=== PATIENT | female | born 1965 | race Caucasian/White ===

== ENCOUNTER → 2025-07-10 | Outpatient (CLI) | payer OTHER, SELFPAY ==
[2025-07-10 19:35] LABS: Hematocrit 39.2 % (37-47); Hemoglobin 13.0 g/dL (12.0-15.0); Immature Granulocytes Count 0.010 X10^3/uL (0.0-0.0); Mean Corp Hgb Conc 33.2 g/dL (32-36); Mean Corpuscular Volume 86.2 fL (81-99); Mean Platelet Vol. 11.2 fl (6.2-12.0); NRBC Flagged by Analyzer 0 % (0-5); Platelet Count 272 K/mm3 (150-450); RBC Distribution Width CV 12.9 % (11.6-14.6); RBC Distribution Width SD 39.8 fl (35.1-43.9); Red Blood Count 4.55 M/mm3 (4.2-5.4); White Blood Count 8.0 K/mm3 (4.4-11.0)
[2025-07-10 20:14] LABS: AST(SGOT) 20 U/L (<=31); Alanine Aminotransfer ALT/SGPT 20 U/L (<=34); Albumin, Serum 4.6 g/dL (3.5-5.0); Alkaline Phosphatase 61 U/L (35-104); Anion Gap 10 (5-15); BUN 21 mg/dL (4-19); BUN/Creat Ratio 29.9 RATIO (10-20); Calcium,Total 10.3 mg/dL (7.6-11.0); Carbon Dioxide 25.0 mmol/L (21.0-32.0); Chloride 104 mmol/L (98-108); Ferritin 103 ng/mL (22-378); Globulin 3.0 g/dL (2.2-4.2); Glucose 93 mg/dL (70-99); Iron 75 ug/dL (50-170); Potassium 4.3 mmol/L (3.3-5.1); Vitamin D,25 Hydroxy 46.3 ng/mL (30-100)
--- OUTSIDE RECORDS SUMMARY | 2025-07-12 20:55 | XMS RPT_ITS | CCD ---
Author Organization [facility] Care Team Providers Care Field Placement Director Name Role Phone Anh Rudd NP Attending Unavailabl e ANH RUDD CNP Attending Unavailable MICHENERSILVERIOANH SIDE GUIDER Admitting Unavailable MICHENERANH SIDE GUIDER Primary Care Unavailable FATEMEH LANE MD Admitting Unavailable FATEMEH LANE MD Primary Care Unavailable FATEMEH LANE MD Attending Unavailable MICHENER, ANH SIDE GUIDER Attending Unavailable MICHENER, ANH SIDE GUIDER Admitting Unavailable MICHENER, ANH SIDE GUIDER Primary Care Unavailable CSERNYIK, ELADIA DO Admitting Unavailable CSERNYIK, ELADIA DO Primary Care Unavailable CSERNYIK, ELADIA DO Attending Unavailable Allergies Allergy Classification Reported Allergen(s) Allergy Type Date of Onset Reaction(s) Facility (1 source) predniSONE Drug Allergy [facility] Repository Problems Active Problems Problem Classification Problem Date Documented Da te Episodic/Chronic Other liver diseases (1 source) Hepatomegaly, not elsewhere classified; Translations: [Hepatomegaly, not elsewhere classified] Onset: 07-04-2024 Episodic Other lower respiratory disease (3 sources) Dyspnea, unspecified; Translations: [Dyspnea, unspecified] Onset: 07-04-2024 Episodic Other upper respiratory disease (1 source) Stridor; Translations: [Stridor] Onset: 07-04-2024 Episodic Past or Other Problems Problem Classification Problem Date Documented Da te Episodic/Chronic Other connective tissue disease (3 sources) Pain in right lower leg; Translations: [Pain in right lower leg] Onset: 12-27-2023 Episodic Results Test Name Value Interpretation Reference Range Facility [facility] [address] [address] Patient: REJI ROSALES. Phone#: : 1965 Age: 59 Gender: F Pt. Type: Out Account: [id number] Location: Ordering: ANH [facility] Exam Date: 07/04/202410:48 Family Phys: Charge Code: [id number] Physician: Throckmorton Order #: [id number] Dose#: PROCEDURE: ECHOCARDIOGRAM WITH DOPPLER AND COLOR FLOW HISTORY: Patient is a 59-year-old female with hyperhidrosis INDICATIONS: HYPERHIDROSIS COMPARISON: None. TECHNIQUE: A 2-D ultrasound, color spectral Doppler and M-mode evaluation of the heart and great vessels. PATIENT MEASUREMENTS: Height (in.): 60 BSA: 1.8 Weight (lbs.): 185 BP: 134/84 Credit Review Officer: LILLIAN M MODE 2D MEASUREMENTS AND CALCULATIONS: LVIDd: 3.79 cm LVIDs: 2.44 cm IVSd: 1.13 cm LVPWd: 1.08 cm LVOT diam: 1.8 cm FS: 35.82 % Ao Root diam: 2.67 cm LA diam: 4.1 cm LA Volume Index: 29 mL/m2 LA A4 Area: 19.33 cm2 RA A4 Area: 15.1 cm2 RVDd: 3.49 cm TAPSE: 21 mm DOPPLER MEASUREMENTS AND CALCULATIONS MITRAL MV E MAX epifanio: 1.05 m/s MV A MAX epifanio: 0.80 m/s MV E-A ratio: 1.31 Lat Peak E' Epifanio 14 cm/sec Septal Peak E' EPIFANIO 11 cm/sec E/E' lateral 8 E/E' medial 9 Continued Report - Page 2 of 3 Patient: REJI ROSALES Phone#: : 1965 Age: 59 Gender: F Pt. Type: Out Account: [id number] Location: Ordering: [employer] Exam Date: 07/04/2024/10:48 Family Phys: Charge Code: [id number] Physician: Throckmorton Order #: [id number] Dose#: AORTIC Ao V2 max: 1.25 m/s Ao max P.29 mm[Hg] LV V1 Max 0.97 m/s LV V1 Max PG 3.78 mm[Hg] PULMONIC PA V2 Max 1.40 m/s PA Max PG 7.85 mm[Hg] TRICUSPID TR Max Epifanio 2.65 m/s TR max PG 28.01 mm[Hg] RVSP 31 mm Hg 2D/M-MODE AND COLOR FLOW LEFT VENTRICLE: Left ventricle is normal in size and thickness. Systolic ejection fraction is 55-60%. There are no significant regional wall motion abnormality seen. Diastolic function is normal WALL MOTION: 1 - Basal anterior: Normal. 7 - Mid anterior: Normal. 13 - Apical anterior: Normal. 2 - Basal anteroseptal: Normal. 8 - Mid anteroseptal: Normal. 14 - Apical septal: Normal. 3 - Basal inferoseptal: Normal. 9 - Mid inferoseptal: Normal. 15 - Apical inferior: Normal. 4 - Basal inferior: Not visualized 10-Mid inferior: Normal. 16 - Apical lateral: Normal. 5 - Basal inferolateral: Normal. 11-Mid inferolateral: Normal. 6 - Basal anterolateral: Normal. 12-Mid anterolateral: Normal. RIGHT VENTRICLE: Right ventricle is normal in size systolic function LEFT ATRIUM: Left atrium is normal size RIGHT ATRIUM: Right atrium is normal in size ATRIAL SEPTUM: Inadequately visualized MITRAL VALVE: Mitral valve appears normal structure. There is mild regurgitation and no stenosis seen. TRICUSPID VALVE: Tricuspid valve is normal structure. There is trivial regurgitation no stenosis seen AORTIC VALVE: Aortic valve is trileaflet. There is no regurgitation or stenosis seen. PULMONIC VALVE: Pulmonic valve is inadequately visualized. Doppler shows no significant regurgitation or stenosis. AORTIC ROOT: Aortic root is normal in size AORTIC ARCH: Aortic root is normal size DESC THORACIC AORTA: Inadequately visualized. Doppler shows normal systolic diastolic flow IVC/SVC: IVC is normal in size with more than 50% collapse of inspiration. Estimated atrial pressure is 3 mm Hg PULMONARY VEINS: Normal pulmonic vein flow PERICARDIUM: There is no pericardial effusion seen. CONCLUSION: Continued Report - Page 3 of 3 Patient: REJI ROSALES Phone#: : 1965 Age: 59 Gender: F Pt. Type: Out Account: [id number] Location: Ordering: ANH RUDD Exam Date: 07/04/2024/10:48 Family Phys: Charge Code: [id number] Physician: Throckmorton Order #: [id number] Dose#: 1. Left ventricle is normal in size and thickness. Systolic ejection fraction 55-60% with normal wall motion 2. There are no significant valvular dysfunction seen. 3. Right ventricle is normal in size with normal systolic function. 4. Estimated right ventricular systolic pressure is 31 mm Hg. Dictated by: JG ALDRICH MD on 07/04/2024 at 12:33 Approved by: JG ALDRICH MD on 07/04/2024 at 13:[address] [facility] US ABD COMPLETEon 07-04-2024 [place] [address] Patient: REJI ROSALES Phone#: : 1965 Age: 59 Gender: F Pt. Type: Out Account: [id number] Location: Ordering: ANH RUDD Exam Date: 07/04/2024/10:09 Family Phys: Charge Code: [id number] Physician: Throckmorton Order #: [id number] Dose#: PROCEDURE: ABDOMEN COMPLETE ULTRASOUND COMPARISON: None. INDICATIONS: Hepatomegaly TECHNIQUE: High resolution sonographic examination was performed of the abdomen. FINDINGS: LIVER: Normal. Normal size and echotexture. No significant masses. BILIARY: Normal. Normal appearing gallbladder and biliary tree. PANCREAS: Normal. No visible mass, abnormal atrophy, or ductal dilatation. SPLEEN: Normal. Normal size and echotexture. KIDNEYS: Normal. No mass or obstruction. AORTA/VASCULAR: Normal. No aneurysm. OTHER: Negative. CONCLUSION: 1. There is no evidence of focal abdominal abnormality. Dictated by: Natalie Luevano MD on 07/04/2024 at 17:47 Approved by: Natalie Luevano MD on 07/04/2024 at 17:[address] [facility] Cat Scratch Disease ABon B.henselae IgG Negative Normal Neg:<1:320 [facility] Comment on above: Order Comment: N Performed By: #### L 100.0100, L506.1000, L501.12784, L3300.7027, L509.3000, L500.4100, L3300.6900, L503.0105, L506.0250, L501.9520, L3300.1500, L506.0400, L7000.5800, L503.6550, L3300.1750, L801.1541, L501.9985, L7100.0100, L503.6150, L500.4050, L801.2600 #### [facility] [address] [place], [place], [phone] (408) B.henselae IgM Negative Normal Neg:<1:100 [facility] Comment on above: Order Comment: N Performed By: #### L 100.0100, L506.1000, L501.75098, L3300.7027, L509.3000, L500.4100, L3300.6900, L503.0105, L506.0250, L501.9520, L3300.1500, L506.0400, L7000.5800, L503.6550, L3300.1750, L801.1541, L501.9985, L7100.0100, L503.6150, L500.4050, L801.2600 #### [facility] [address] [place] [place], [address] (689) B.worley IgG Negative Normal Neg:<1:320 [facility] Comment on above: Order Comment: N Performed By: #### L 100.0100, L506.1000, L501.95931, L3300.7027, L509.3000, L500.4100, L3300.6900, L503.0105, L506.0250, L501.9520, L3300.1500, L506.0400, L7000.5800, L503.6550, L3300.1750, L801.1541, L501.9985, L7100.0100, L503.6150, L500.4050, L801.2600 #### [facility] [address] [place], [address] (643) B.worley IgM Negative Normal Neg:<1:100 [facility] Comment on above: Order Comment: N Result Comment: Note : Bartonella henselae is now regarded as the etiologic agent of Cat Scratch Disease, bacillary angiomatosis, endocarditis and fever with bacteremia. Bartonella worley also causes bacillary angiomatosis particularly among immunocompromised patients, and trench fever. This test was developed and its performance characteristics determined by [employer]. It has not been cleared or approved by the Food and Drug Administration. The FDA has determined that such clearance or approval is not necessary. Performed By: #### L 100.0100, L506.1000, L501.01312, L3300.7027, L509.3000, L500.4100, L3300.6900, L503.0105, L506.0250, L501.9520, L3300.1500, L506.0400, L7000.5800, L503.6550, L3300.1750, L801.1541, L501.9985, L7100.0100, L503.6150, L500.4050, L801.2600 #### [facility] [address] [place], [place], [id number] DHEA Sulfateon 06-15-2024 DHEA SULFATE 134.0 ug/dL Normal 29.4-220.5 [facility] Comment on above: Order Comment: N Performed By: #### L 100.0100, L506.1000, L501.00596, L3300.7027, L509.3000, L500.4100, L3300.6900, L503.0105, L506.0250, L501.9520, L3300.1500, L506.0400, L7000.5800, L503.6550, L3300.1750, L801.1541, L501.9985, L7100.0100, L503.6150, L500.4050, L801.2600 #### [facility] [address] [place], [place], [id number] Lyme Antibodies,W Bloton LYME IgG INTERP Negative Normal . [facility] Comment on above: Order Comment: N Result Comment: Posi tive: 5 of the following Borrelia-specific bands: 18,23,28,30,39,41,45,58, 66, and 93. Negative: No bands or banding patterns which do not meet positive criteria. Performed By: #### L 100.0100, L506.1000, L501.03953, L3300.7027, L509.3000, L500.4100, L3300.6900, L503.0105, L506.0250, L501.9520, L3300.1500, L506.0400, L7000.5800, L503.6550, L3300.1750, L801.1541, L501.9985, L7100.0100, L503.6150, L500.4050, L801.2600 #### [facility] [address] [place], [address] LYME IgM INTERP Negative Normal . [facility] Comment on above: Order Comment: N Result Comment: Note : An equivocal or positive EIA result followed by a negative Line Blot result is considered NEGATIVE. An equivocal or positive EIA result followed by a positive Line Blot is considered POSITIVE by the CDC. Positive: 2 of the following bands: 23,39 or 41 Negative: No bands or banding patterns which do not meet positive criteria. Criteria for positivity are those recommended by CDC/ASTPHLD. p23=Osp C, k02=crqazjiri Note: Sera from individuals with the following may cross react in the Lyme Line Blot assays: other spirochetal diseases (periodontal disease, leptospirosis, relapsing fever, yaws, and pinta); connective autoimmune (Rheumatoid Arthritis and Systemic Lupus Erythematosus and also individuals with Antinuclear Antibody); other infections ([place] Spotted Fever; Kang-Anaya Virus, and Cytomegalovirus). Please Note: Lyme immunoblot alone is not recommended for the diagnosis of Lyme disease. Current guidelines recommend the use of a two-tiered approach to Lyme serology testing to improve the sensitivity and specificity of testing. [facility] offers test code 153935 Lyme Disease Serology with Reflex to aid in the diagnosis of Lyme Disease. Performed By: #### L 100.0100, L506.1000, L501.81575, L3300.7027, L509.3000, L500.4100, L3300.6900, L503.0105, L506.0250, L501.9520, L3300.1500, L506.0400, L7000.5800, L503.6550, L3300.1750, L801.1541, L501.9985, L7100.0100, L503.6150, L500.4050, L801.2600 #### [facility] [address] [place], [place], [id number] P18 Ab Absent Normal . [facility] Comment on above: Order Comment: N Performed By: #### L 100.0100, L506.1000, L501.46765, L3300.7027, L509.3000, L500.4100, L3300.6900, L503.0105, L506.0250, L501.9520, L3300.1500, L506.0400, L7000.5800, L503.6550, L3300.1750, L801.1541, L501.9985, L7100.0100, L503.6150, L500.4050, L801.2600 #### [facility] [address] [place], [address] P23 Ab Absent Normal . [facility] Comment on above: Order Comment: N Performed By: #### L 100.0100, L506.1000, L501.23034, L3300.7027, L509.3000, L500.4100, L3300.6900, L503.0105, L506.0250, L501.9520, L3300.1500, L506.0400, L7000.5800, L503.6550, L3300.1750, L801.1541, L501.9985, L7100.0100, L503.6150, L500.4050, L801.2600 #### [facility] [address] [place], [address] P28 Ab Absent Normal . [facility] Comment on above: Order Comment: N Performed By: #### L 100.0100, L506.1000, L501.43021, L3300.7027, L509.3000, L500.4100, L3300.6900, L503.0105, L506.0250, L501.9520, L3300.1500, L506.0400, L7000.5800, L503.6550, L3300.1750, L801.1541, L501.9985, L7100.0100, L503.6150, L500.4050, L801.2600 #### [facility] [address] [place], [address] P30 Ab Absent Normal . [facility] Comment on above: Order Comment: N Performed By: #### L 100.0100, L506.1000, L501.89367, L3300.7027, L509.3000, L500.4100, L3300.6900, L503.0105, L506.0250, L501.9520, L3300.1500, L506.0400, L7000.5800, L503.6550, L3300.1750, L801.1541, L501.9985, L7100.0100, L503.6150, L500.4050, L801.2600 #### [facility] [address] [place], [place], [address] P39 Ab Absent Normal . [facility] Comment on above: Order Comment: N Performed By: #### L 100.0100, L506.1000, L501.75005, L3300.7027, L509.3000, L500.4100, L3300.6900, L503.0105, L506.0250, L501.9520, L3300.1500, L506.0400, L7000.5800, L503.6550, L3300.1750, L801.1541, L501.9985, L7100.0100, L503.6150, L500.4050, L801.2600 #### [facility] [address] [place], [address] P41 Ab Absent Normal . [facility] Comment on above: Order Comment: N Performed By: #### L 100.0100, L506.1000, L501.54723, L3300.7027, L509.3000, L500.4100, L3300.6900, L503.0105, L506.0250, L501.9520, L3300.1500, L506.0400, L7000.5800, L503.6550, L3300.1750, L801.1541, L501.9985, L7100.0100, L503.6150, L500.4050, L801.2600 #### [facility] [address] [place], [address] P45 Ab Absent Normal . [facility] Comment on above: Order Comment: N Performed By: #### L 100.0100, L506.1000, L501.74267, L3300.7027, L509.3000, L500.4100, L3300.6900, L503.0105, L506.0250, L501.9520, L3300.1500, L506.0400, L7000.5800, L503.6550, L3300.1750, L801.1541, L501.9985, L7100.0100, L503.6150, L500.4050, L801.2600 #### [facility] [address] [place], [address] P58 Ab Present Abnormal . [facility] Comment on above: Order Comment: N Performed By: #### L 100.0100, L506.1000, L501.97674, L3300.7027, L509.3000, L500.4100, L3300.6900, L503.0105, L506.0250, L501.9520, L3300.1500, L506.0400, L7000.5800, L503.6550, L3300.1750, L801.1541, L501.9985, L7100.0100, L503.6150, L500.4050, L801.2600 #### [facility] [address] [place], [place], [id number] ([phone] P66 Ab Absent Normal . [facility] Comment on above: Order Comment: N Performed By: #### L 100.0100, L506.1000, L501.33226, L3300.7027, L509.3000, L500.4100, L3300.6900, L503.0105, L506.0250, L501.9520, L3300.1500, L506.0400, L7000.5800, L503.6550, L3300.1750, L801.1541, L501.9985, L7100.0100, L503.6150, L500.4050, L801.2600 #### [facility] [address] [place], [place], [address] P93 Ab Absent Normal . [facility] Comment on above: Order Comment: N Performed By: #### L 100.0100, L506.1000, L501.55430, L3300.7027, L509.3000, L500.4100, L3300.6900, L503.0105, L506.0250, L501.9520, L3300.1500, L506.0400, L7000.5800, L503.6550, L3300.1750, L801.1541, L501.9985, L7100.0100, L503.6150, L500.4050, L801.2600 #### [facility] [address] [place], [place], [phone] Thyroglobulin Antibodyon TG AB < 1.0 Normal 0.0-0.9 [facility] Comment on above: Order Comment: N Result Comment: Thyr oglobulin Antibody measured by Kayli Axson Methodology It should be noted that the presence of thyroglobulin antibodies may not be pathogenic nor diagnostic, especially at very low levels. The assay hot stick man has found that four percent of individuals without evidence of thyroid disease or autoimmunity will have positive TgAb levels up to 4 IU/mL. Performed By: #### L 100.0100, L506.1000, L501.20474, L3300.7027, L509.3000, L500.4100, L3300.6900, L503.0105, L506.0250, L501.9520, L3300.1500, L506.0400, L7000.5800, L503.6550, L3300.1750, L801.1541, L501.9985, L7100.0100, L503.6150, L500.4050, L801.2600 #### [facility] [address] [place], [address] Thyroid Peroxidase ABon 09-0 -2023 THYR PEROX AB 18 IU/mL Normal 0-34 [facility] Comment on above: Order Comment: N Result Comment: Perf ormed at: [facility] [address] [id number] [facility]p [employer] Diversity: Paul Mclean MD, Phone: [phone] Performed at: [facility] [id number] [employer]iversity: Erwin Jenkins PhD, Phone: [phone] Performed By: #### L 100.0100, L506.1000, L501.17750, L3300.7027, L509.3000, L500.4100, L3300.6900, L503.0105, L506.0250, L501.9520, L3300.1500, L506.0400, L7000.5800, L503.6550, L3300.1750, L801.1541, L501.9985, L7100.0100, L503.6150, L500.4050, L801.2600 #### [facility] [address] [place], [place], [address] Miscellaneous Lab Procedureo n 06-14-2024 [facility] [place] Normal [facility] Comment on above: Order Comment: [id number] Babesia microti Antibodies, SER/RT Result Comment: TEST RESULTS LIMITS Babesia microti IgG A, <1:10 Neg:<1:10 Babesia microti IgM A, <1:10 Neg:<1:10 Result Comment: Diagnosis of acute babesiosis cannot be confirmed solely by the presence of antibody in a serum sample collected at a single time point. Babesia microti (B. microti) IgG antibody titers >=1:1024 and/or a positive B. microti IgM antibody IFA result are suggestive of active or recent B. microti infection. PCR or peripheral blood smear should be considered to confirm acute infection. TESTING PERFORMED AT [facility]. ORIGINAL REPORT ON FILE IN LAB CONTAINS ADDITIONAL TEST SITE INFORMATION. Performed By: #### L 100.0100, L506.1000, L501.88739, L3300.7027, L509.3000, L500.4100, L3300.6900, L503.0105, L506.0250, L501.9520, L3300.1500, L506.0400, L7000.5800, L503.6550, L3300.1750, L801.1541, L501.9985, L7100.0100, L503.6150, L500.4050, L801.2600 #### [facility] [address] [place], [address] PROGESTERONE 4317on 06-11-20 24 PROGESTERONE 0.2 ng/mL Normal . [facility] Comment on above: Order Comment: N Result Comment: Foll icular phase 0.1 - 0.9 Luteal phase 1.8 - 23.9 Ovulation phase 0.1 - 12.0 First trimester 11.0 - 44.3 Second trimester 25.4 - 83.3 Third trimester 58.7 - 214.0 Postmenopausal 0.0 - 0.1 Performed at: [address] [id number] [employer]: Erwin Jenkins PhD, Phone: [phone] Performed By: #### L 100.0100, L506.1000, L501.71002, L3300.7027, L509.3000, L500.4100, L3300.6900, L503.0105, L506.0250, L501.9520, L3300.1500, L506.0400, L7000.5800, L503.6550, L3300.1750, L801.1541, L501.9985, L7100.0100, L503.6150, L500.4050, L801.2600 #### [facility] [address] [place], [address] CBC W/Diff, Automatedon 08-3 0-2023 Absolute Lymph 4.00 X10 3/uL Normal 0.83-4.51 [facility] Comment on above: Performed By: #### L 100.0100, L506.1000, L501.13622, L3300.7027, L509.3000, L500.4100, L3300.6900, L503.0105, L506.0250, L501.9520, L3300.1500, L506.0400, L7000.5800, L503.6550, L3300.1750, L801.1541, L501.9985, L7100.0100, L503.6150, L500.4050, L801.2600 #### [facility] [address] [place], [address] Absolute Neut 3.4 X10 3/uL Normal 2.0-7.7 [facility] Comment on above: Performed By: #### L 100.0100, L506.1000, L501.67132, L3300.7027, L509.3000, L500.4100, L3300.6900, L503.0105, L506.0250, L501.9520, L3300.1500, L506.0400, L7000.5800, L503.6550, L3300.1750, L801.1541, L501.9985, L7100.0100, L503.6150, L500.4050, L801.2600 #### [facility] [address] [facility] [place], [place], [phone] (020) Basophils/100 WBC (Bld) 0.6 % Normal 0-1 [facility] Comment on above: Performed By: #### L 100.0100, L506.1000, L501.59290, L3300.7027, L509.3000, L500.4100, L3300.6900, L503.0105, L506.0250, L501.9520, L3300.1500, L506.0400, L7000.5800, L503.6550, L3300.1750, L801.1541, L501.9985, L7100.0100, L503.6150, L500.4050, L801.2600 #### [facility] [address] [place], [place], [id number] (680) Eosinophils/100 WBC (Bld) 3.7 % Normal 0-5 [facility] Comment on above: Performed By: #### L 100.0100, L506.1000, L501.38099, L3300.7027, L509.3000, L500.4100, L3300.6900, L503.0105, L506.0250, L501.9520, L3300.1500, L506.0400, L7000.5800, L503.6550, L3300.1750, L801.1541, L501.9985, L7100.0100, L503.6150, L500.4050, L801.2600 #### [facility] [address] [place], [address] Erythrocyte distribution width (RBC) [Ratio] 12.7 % Normal 11.6-14.6 [facility] Comment on above: Performed By: #### L 100.0100, L506.1000, L501.11662, L3300.7027, L509.3000, L500.4100, L3300.6900, L503.0105, L506.0250, L501.9520, L3300.1500, L506.0400, L7000.5800, L503.6550, L3300.1750, L801.1541, L501.9985, L7100.0100, L503.6150, L500.4050, L801.2600 #### [facility] [address] [facility] [place], [address] Hematocrit (Bld) [Volume fraction] 38.6 % Normal 37-47 [facility] Comment on above: Performed By: #### L 100.0100, L506.1000, L501.37581, L3300.7027, L509.3000, L500.4100, L3300.6900, L503.0105, L506.0250, L501.9520, L3300.1500, L506.0400, L7000.5800, L503.6550, L3300.1750, L801.1541, L501.9985, L7100.0100, L503.6150, L500.4050, L801.2600 #### [facility] [address] [place], [address] Hemoglobin (Bld) [Mass/Vol] 12.4 g/dL Normal 12.0-15.0 [facility] Comment on above: Performed By: #### L 100.0100, L506.1000, L501.94669, L3300.7027, L509.3000, L500.4100, L3300.6900, L503.0105, L506.0250, L501.9520, L3300.1500, L506.0400, L7000.5800, L503.6550, L3300.1750, L801.1541, L501.9985, L7100.0100, L503.6150, L500.4050, L801.2600 #### [facility] [address] [place], [place], [id number] IG% 0.400 Normal 0.0-0.9 [facility] Comment on above: Result Comment: IG% - Immature Granulocytes (promyelocytes, myelocytes and metamyelocytes) > 1% indicates that a LEFT SHIFT is Present. Performed By: #### L 100.0100, L506.1000, L501.98062, L3300.7027, L509.3000, L500.4100, L3300.6900, L503.0105, L506.0250, L501.9520, L3300.1500, L506.0400, L7000.5800, L503.6550, L3300.1750, L801.1541, L501.9985, L7100.0100, L503.6150, L500.4050, L801.2600 #### [facility] [address] [facility]. [place], [place], [id number] [phone] Lymphocytes/100 WBC (Bld) 47.6 % High 19-41 [facility] Comment on above: Performed By: #### L 100.0100, L506.1000, L501.59996, L3300.7027, L509.3000, L500.4100, L3300.6900, L503.0105, L506.0250, L501.9520, L3300.1500, L506.0400, L7000.5800, L503.6550, L3300.1750, L801.1541, L501.9985, L7100.0100, L503.6150, L500.4050, L801.2600 #### [facility] [address] [place], [address] MCH (RBC) [Entitic mass] 27.2 pg Normal 27.0-32.0 [facility] Comment on above: Performed By: #### L 100.0100, L506.1000, L501.66791, L3300.7027, L509.3000, L500.4100, L3300.6900, L503.0105, L506.0250, L501.9520, L3300.1500, L506.0400, L7000.5800, L503.6550, L3300.1750, L801.1541, L501.9985, L7100.0100, L503.6150, L500.4050, L801.2600 #### [facility] [address] [facility] [place], [address] MCHC (RBC) [Mass/Vol] 32.1 g/dL Normal 32-36 [facility] Comment on above: Performed By: #### L 100.0100, L506.1000, L501.81059, L3300.7027, L509.3000, L500.4100, L3300.6900, L503.0105, L506.0250, L501.9520, L3300.1500, L506.0400, L7000.5800, L503.6550, L3300.1750, L801.1541, L501.9985, L7100.0100, L503.6150, L500.4050, L801.2600 #### [facility] [address] [facility] [place], [address] MCV (RBC) [Entitic vol] 84.6 fL Normal 81-99 [facility] Comment on above: Performed By: #### L 100.0100, L506.1000, L501.51994, L3300.7027, L509.3000, L500.4100, L3300.6900, L503.0105, L506.0250, L501.9520, L3300.1500, L506.0400, L7000.5800, L503.6550, L3300.1750, L801.1541, L501.9985, L7100.0100, L503.6150, L500.4050, L801.2600 #### [facility] [address] [facility] [place], [address] Monocytes/100 WBC (Bld) 7.1 % Normal 0-10 [facility] Comment on above: Performed By: #### L 100.0100, L506.1000, L501.91329, L3300.7027, L509.3000, L500.4100, L3300.6900, L503.0105, L506.0250, L501.9520, L3300.1500, L506.0400, L7000.5800, L503.6550, L3300.1750, L801.1541, L501.9985, L7100.0100, L503.6150, L500.4050, L801.2600 #### [facility] [address] [facility] [place], [address] Neutrophils/100 WBC (Bld) 40.6 % Low 47-70 [facility] Comment on above: Performed By: #### L 100.0100, L506.1000, L501.21357, L3300.7027, L509.3000, L500.4100, L3300.6900, L503.0105, L506.0250, L501.9520, L3300.1500, L506.0400, L7000.5800, L503.6550, L3300.1750, L801.1541, L501.9985, L7100.0100, L503.6150, L500.4050, L801.2600 #### [facility] [address] [facility] [place], [address] Nucleated RBC (Bld) [#/Vol] 0 10*3/uL Normal 0-5 [facility] Comment on above: Performed By: #### L 100.0100, L506.1000, L501.01288, L3300.7027, L509.3000, L500.4100, L3300.6900, L503.0105, L506.0250, L501.9520, L3300.1500, L506.0400, L7000.5800, L503.6550, L3300.1750, L801.1541, L501.9985, L7100.0100, L503.6150, L500.4050, L801.2600 #### [facility] [address] [facility] [place], [address] (270) Platelet mean volume (Bld) [Entitic vol] 12.5 fL High 6.2-12.0 [facility] Comment on above: Performed By: #### L 100.0100, L506.1000, L501.76110, L3300.7027, L509.3000, L500.4100, L3300.6900, L503.0105, L506.0250, L501.9520, L3300.1500, L506.0400, L7000.5800, L503.6550, L3300.1750, L801.1541, L501.9985, L7100.0100, L503.6150, L500.4050, L801.2600 #### [facility] [address] [facility] [place], [address] Platelets (Bld) [#/Vol] 239 10*3/uL Normal 150-450 [facility] Comment on above: Performed By: #### L 100.0100, L506.1000, L501.58837, L3300.7027, L509.3000, L500.4100, L3300.6900, L503.0105, L506.0250, L501.9520, L3300.1500, L506.0400, L7000.5800, L503.6550, L3300.1750, L801.1541, L501.9985, L7100.0100, L503.6150, L500.4050, L801.2600 #### [facility] [address] [place], [place], [phone] (536) RBC (Bld) [#/Vol] 4.56 10*6/uL Normal 4.2-5.4 [facility] Comment on above: Performed By: #### L 100.0100, L506.1000, L501.19130, L3300.7027, L509.3000, L500.4100, L3300.6900, L503.0105, L506.0250, L501.9520, L3300.1500, L506.0400, L7000.5800, L503.6550, L3300.1750, L801.1541, L501.9985, L7100.0100, L503.6150, L500.4050, L801.2600 #### [facility] [address] [place], [address] (001) RDW SD 38.7 fl Normal 35.1-43.9 [facility] Comment on above: Performed By: #### L 100.0100, L506.1000, L501.43996, L3300.7027, L509.3000, L500.4100, L3300.6900, L503.0105, L506.0250, L501.9520, L3300.1500, L506.0400, L7000.5800, L503.6550, L3300.1750, L801.1541, L501.9985, L7100.0100, L503.6150, L500.4050, L801.2600 #### [facility] [address] [place], [address] (225) WBC (Bld) [#/Vol] 8.4 10*3/uL Normal 4.4-11.0 [facility] Comment on above: Performed By: #### L 100.0100, L506.1000, L501.50375, L3300.7027, L509.3000, L500.4100, L3300.6900, L503.0105, L506.0250, L501.9520, L3300.1500, L506.0400, L7000.5800, L503.6550, L3300.1750, L801.1541, L501.9985, L7100.0100, L503.6150, L500.4050, L801.2600 #### [facility] [address] [facility] [place], [address] [facility] 2024 Albumin [Mass/Vol] 4.3 g/dL Normal 3.2-5.0 [facility] Comment on above: Order Comment: N N Performed By: #### L 100.0100, L506.1000, L501.21302, L3300.7027, L509.3000, L500.4100, L3300.6900, L503.0105, L506.0250, L501.9520, L3300.1500, L506.0400, L7000.5800, L503.6550, L3300.1750, L801.1541, L501.9985, L7100.0100, L503.6150, L500.4050, L801.2600 #### [facility] [address] [facility] [place], [address] Albumin/Globulin [Mass ratio] 1.3 {ratio} Normal 0.9-2.4 [facility] Comment on above: Order Comment: N N Performed By: #### L 100.0100, L506.1000, L501.39620, L3300.7027, L509.3000, L500.4100, L3300.6900, L503.0105, L506.0250, L501.9520, L3300.1500, L506.0400, L7000.5800, L503.6550, L3300.1750, L801.1541, L501.9985, L7100.0100, L503.6150, L500.4050, L801.2600 #### [facility] [address] [facility] [place], [place], [phone] (211) ALK P 81 U/L Normal 45-117 [facility] Comment on above: Order Comment: N N Performed By: #### L 100.0100, L506.1000, L501.20037, L3300.7027, L509.3000, L500.4100, L3300.6900, L503.0105, L506.0250, L501.9520, L3300.1500, L506.0400, L7000.5800, L503.6550, L3300.1750, L801.1541, L501.9985, L7100.0100, L503.6150, L500.4050, L801.2600 #### [facility] [address] [facility] [place], [address] ALT [Catalytic activity/Vol] 28 U/L Normal 13-56 [facility] Comment on above: Order Comment: N N Performed By: #### L 100.0100, L506.1000, L501.11309, L3300.7027, L509.3000, L500.4100, L3300.6900, L503.0105, L506.0250, L501.9520, L3300.1500, L506.0400, L7000.5800, L503.6550, L3300.1750, L801.1541, L501.9985, L7100.0100, L503.6150, L500.4050, L801.2600 #### [facility] [address] [facility] [place], [place], [phone] (596) AST [Catalytic activity/Vol] 17 U/L Normal 15-37 [facility] Comment on above: Order Comment: N N Performed By: #### L 100.0100, L506.1000, L501.74600, L3300.7027, L509.3000, L500.4100, L3300.6900, L503.0105, L506.0250, L501.9520, L3300.1500, L506.0400, L7000.5800, L503.6550, L3300.1750, L801.1541, L501.9985, L7100.0100, L503.6150, L500.4050, L801.2600 #### [facility] [address] [place], [place], [phone] Bilirubin [Mass/Vol] 0.50 mg/dL Normal 0.20-1.00 [facility] Comment on above: Order Comment: N N Result Comment: For patients on eltrombopag therapy, use of Dimension [place] TBIL is not recommended. Performed By: #### L 100.0100, L506.1000, L501.49796, L3300.7027, L509.3000, L500.4100, L3300.6900, L503.0105, L506.0250, L501.9520, L3300.1500, L506.0400, L7000.5800, L503.6550, L3300.1750, L801.1541, L501.9985, L7100.0100, L503.6150, L500.4050, L801.2600 #### [facility] [address] [place], [place], [phone] BUN/CRE 24.0 RATIO High 10-20 [facility] Comment on above: Order Comment: N N Performed By: #### L 100.0100, L506.1000, L501.52861, L3300.7027, L509.3000, L500.4100, L3300.6900, L503.0105, L506.0250, L501.9520, L3300.1500, L506.0400, L7000.5800, L503.6550, L3300.1750, L801.1541, L501.9985, L7100.0100, L503.6150, L500.4050, L801.2600 #### [facility] [address] [facility] [place], [place], [phone] (544) CA,Total 10.4 mg/dL High 8.5-10.1 [facility] Comment on above: Order Comment: N N Performed By: #### L 100.0100, L506.1000, L501.60921, L3300.7027, L509.3000, L500.4100, L3300.6900, L503.0105, L506.0250, L501.9520, L3300.1500, L506.0400, L7000.5800, L503.6550, L3300.1750, L801.1541, L501.9985, L7100.0100, L503.6150, L500.4050, L801.2600 #### [facility] [address] [facility] [place], [phone] (375) Chloride [Moles/Vol] 105 mmol/L Normal 98-107 [facility] Comment on above: Order Comment: N N Performed By: #### L 100.0100, L506.1000, L501.84553, L3300.7027, L509.3000, L500.4100, L3300.6900, L503.0105, L506.0250, L501.9520, L3300.1500, L506.0400, L7000.5800, L503.6550, L3300.1750, L801.1541, L501.9985, L7100.0100, L503.6150, L500.4050, L801.2600 #### [facility] [address] [facility] [place], [place], [phone] (861) CO2 [Moles/Vol] 28.0 mmol/L Normal 21.0-32.0 [facility] Comment on above: Order Comment: N N Performed By: #### L 100.0100, L506.1000, L501.02626, L3300.7027, L509.3000, L500.4100, L3300.6900, L503.0105, L506.0250, L501.9520, L3300.1500, L506.0400, L7000.5800, L503.6550, L3300.1750, L801.1541, L501.9985, L7100.0100, L503.6150, L500.4050, L801.2600 #### [facility] [address] [place], [address] Creatinine [Mass/Vol] 0.75 mg/dL Normal 0.55-1.02 [facility] Comment on above: Order Comment: N N Result Comment: The validity of the calculated GFR GFRAA in patients over 70 years has not been determined. Clinical correlation is essential. Performed By: #### L 100.0100, L506.1000, L501.95156, L3300.7027, L509.3000, L500.4100, L3300.6900, L503.0105, L506.0250, L501.9520, L3300.1500, L506.0400, L7000.5800, L503.6550, L3300.1750, L801.1541, L501.9985, L7100.0100, L503.6150, L500.4050, L801.2600 #### [facility] [address] [place], [place], [id number] EST GFR - AA 102 mL/min Normal >60 [facility] Comment on above: Order Comment: N N Result Comment: Afri can Armenian GFR Calc Performed By: #### L 100.0100, L506.1000, L501.98343, L3300.7027, L509.3000, L500.4100, L3300.6900, L503.0105, L506.0250, L501.9520, L3300.1500, L506.0400, L7000.5800, L503.6550, L3300.1750, L801.1541, L501.9985, L7100.0100, L503.6150, L500.4050, L801.2600 #### [facility] [address] [place], [place], [phone] (353) GAP 7 Normal 5-15 [facility] Comment on above: Order Comment: N N Performed By: #### L 100.0100, L506.1000, L501.98001, L3300.7027, L509.3000, L500.4100, L3300.6900, L503.0105, L506.0250, L501.9520, L3300.1500, L506.0400, L7000.5800, L503.6550, L3300.1750, L801.1541, L501.9985, L7100.0100, L503.6150, L500.4050, L801.2600 #### [facility] [address] [place], [address] (968) GFR/1.73 sq M.predicted among non-blacks MDRD (S/P/Bld) [Vol rate/Area] 85 mL/min/{1.73_m2} Normal >60 [facility] Comment on above: Order Comment: N N Result Comment: Non- GFR Calc Performed By: #### L 100.0100, L506.1000, L501.34623, L3300.7027, L509.3000, L500.4100, L3300.6900, L503.0105, L506.0250, L501.9520, L3300.1500, L506.0400, L7000.5800, L503.6550, L3300.1750, L801.1541, L501.9985, L7100.0100, L503.6150, L500.4050, L801.2600 #### [facility] [address] [place], [place], [phone] (116) Globulin (S) [Mass/Vol] 3.3 g/dL Normal 2.2-4.2 [facility] Comment on above: Order Comment: N N Performed By: #### L 100.0100, L506.1000, L501.09939, L3300.7027, L509.3000, L500.4100, L3300.6900, L503.0105, L506.0250, L501.9520, L3300.1500, L506.0400, L7000.5800, L503.6550, L3300.1750, L801.1541, L501.9985, L7100.0100, L503.6150, L500.4050, L801.2600 #### [facility] [address] [facility] [address] [place], [place], [phone] Glucose [Mass/Vol] 91 mg/dL Normal 74-106 [facility] Comment on above: Order Comment: N N Performed By: #### L 100.0100, L506.1000, L501.62000, L3300.7027, L509.3000, L500.4100, L3300.6900, L503.0105, L506.0250, L501.9520, L3300.1500, L506.0400, L7000.5800, L503.6550, L3300.1750, L801.1541, L501.9985, L7100.0100, L503.6150, L500.4050, L801.2600 #### [facility] [address] [place], [address] Potassium [Moles/Vol] 4.5 mmol/L Normal 3.5-5.1 [facility] Comment on above: Order Comment: N N Performed By: #### L 100.0100, L506.1000, L501.08373, L3300.7027, L509.3000, L500.4100, L3300.6900, L503.0105, L506.0250, L501.9520, L3300.1500, L506.0400, L7000.5800, L503.6550, L3300.1750, L801.1541, L501.9985, L7100.0100, L503.6150, L500.4050, L801.2600 #### [facility] [address] [facility] [place], [place], [phone] (252) Sodium [Moles/Vol] 140 mmol/L Normal 136-145 [facility] Comment on above: Order Comment: N N Performed By: #### L 100.0100, L506.1000, L501.21112, L3300.7027, L509.3000, L500.4100, L3300.6900, L503.0105, L506.0250, L501.9520, L3300.1500, L506.0400, L7000.5800, L503.6550, L3300.1750, L801.1541, L501.9985, L7100.0100, L503.6150, L500.4050, L801.2600 #### [facility] [address] [place], [address] (009) T PROT 7.6 g/dL Normal 6.4-8.2 [facility] Comment on above: Order Comment: N N Performed By: #### L 100.0100, L506.1000, L501.45285, L3300.7027, L509.3000, L500.4100, L3300.6900, L503.0105, L506.0250, L501.9520, L3300.1500, L506.0400, L7000.5800, L503.6550, L3300.1750, L801.1541, L501.9985, L7100.0100, L503.6150, L500.4050, L801.2600 #### [facility] [address] [facility] [place], [place], [phone] (617) Urea nitrogen [Mass/Vol] 18 mg/dL Normal 7-18 [facility] Comment on above: Order Comment: N N Performed By: #### L 100.0100, L506.1000, L501.38511, L3300.7027, L509.3000, L500.4100, L3300.6900, L503.0105, L506.0250, L501.9520, L3300.1500, L506.0400, L7000.5800, L503.6550, L3300.1750, L801.1541, L501.9985, L7100.0100, L503.6150, L500.4050, L801.2600 #### [facility] [address] [place], [address] Estradiolon 2024 ESTRADIOL 11.7 pg/mL Normal [facility] Comment on above: Order Comment: NN Result Comment: NORM AL REFERENCE RANGES FEMALE FOLLICULAR 21.4 - 164.8 pg/mL MID-CYCLE PEAK 49.9 - 367.2 pg/mL LUTEAL 40.2 - 259.0 pg/mL POST-MENOPAUSAL ON MHT <11.0 - 462.1 pg/mL NOT ON MHT <11.0 - 58.3 pg/mL MALE <11.0 - 52.5 pg/mL NOTE: [employer] HAS CONFIRMED THE DRUG FULVETRANT (FASLODEX) MAY CAUSE FALSELY ELEVATED ESTRADIOL RESULTS WHEN USING THIS TEST METHOD. IF PATIENT IS TAKING FULVESTRANT AN ALTERNATIVE METHOD SHOULD BE USED TO DETERMINE ESTRADIOL CONCENTRATION. Performed By: #### L 100.0100, L506.1000, L501.31929, L3300.7027, L509.3000, L500.4100, L3300.6900, L503.0105, L506.0250, L501.9520, L3300.1500, L506.0400, L7000.5800, L503.6550, L3300.1750, L801.1541, L501.9985, L7100.0100, L503.6150, L500.4050, L801.2600 #### [facility] [address] [place], [address] Ferritinon 2024 Ferritin [Mass/Vol] 96 ng/mL Normal 8-252 [facility] Comment on above: Order Comment: NN Performed By: #### L 100.0100, L506.1000, L501.78409, L3300.7027, L509.3000, L500.4100, L3300.6900, L503.0105, L506.0250, L501.9520, L3300.1500, L506.0400, L7000.5800, L503.6550, L3300.1750, L801.1541, L501.9985, L7100.0100, L503.6150, L500.4050, L801.2600 #### [facility] [address] [facility] [place], [place], [phone] Folates, (Folic Acid)on 05-13 FOLATES 39.30 ng/mL Normal 3.1-55.4 [facility] Comment on above: Order Comment: NN Performed By: #### L 100.0100, L506.1000, L501.16381, L3300.7027, L509.3000, L500.4100, L3300.6900, L503.0105, L506.0250, L501.9520, L3300.1500, L506.0400, L7000.5800, L503.6550, L3300.1750, L801.1541, L501.9985, L7100.0100, L503.6150, L500.4050, L801.2600 #### [facility] [address] [facility] [place], [place], [phone] Free T3on 2024 Free T3 [Mass/Vol] 2.8 pg/mL Normal 2.18-3.98 [facility] Comment on above: Order Comment: N N Performed By: #### L 100.0100, L506.1000, L501.66221, L3300.7027, L509.3000, L500.4100, L3300.6900, L503.0105, L506.0250, L501.9520, L3300.1500, L506.0400, L7000.5800, L503.6550, L3300.1750, L801.1541, L501.9985, L7100.0100, L503.6150, L500.4050, L801.2600 #### [facility] [address] [facility] [place], [address] Hemoglobin A1con 2024 HbA1c (Bld) [Mass fraction] 5.7 % High 3.8-5.6 [facility] Comment on above: Result Comment: Norm al < 5.7 % Prediabetic 5.7 - 6.4 % Diabetic >or= 6.5 % Please note range changes. Performed By: #### L 100.0100, L506.1000, L501.81920, L3300.7027, L509.3000, L500.4100, L3300.6900, L503.0105, L506.0250, L501.9520, L3300.1500, L506.0400, L7000.5800, L503.6550, L3300.1750, L801.1541, L501.9985, L7100.0100, L503.6150, L500.4050, L801.2600 #### [facility] [address] [place], [address] Ironon 2024 Iron [Mass/Vol] 88 ug/dL Normal 50-170 [facility] Comment on above: Order Comment: N N Performed By: #### L 100.0100, L506.1000, L501.08472, L3300.7027, L509.3000, L500.4100, L3300.6900, L503.0105, L506.0250, L501.9520, L3300.1500, L506.0400, L7000.5800, L503.6550, L3300.1750, L801.1541, L501.9985, L7100.0100, L503.6150, L500.4050, L801.2600 #### [facility] [address] [facility] [place], [address] Lipid Profileon 2024 Cholesterol [Mass/Vol] 209 mg/dL High 200 [facility] Comment on above: Order Comment: N N Result Comment: <200 mg/dL Desirable 200-240 mg/dL Borderline >240 mg/dL High Risk Performed By: #### L 100.0100, L506.1000, L501.22096, L3300.7027, L509.3000, L500.4100, L3300.6900, L503.0105, L506.0250, L501.9520, L3300.1500, L506.0400, L7000.5800, L503.6550, L3300.1750, L801.1541, L501.9985, L7100.0100, L503.6150, L500.4050, L801.2600 #### [facility] [address] [place], [address] Cholesterol in HDL [Mass/Vol] 53 mg/dL Normal [facility] Comment on above: Order Comment: N N Result Comment: The drugs N-Acetylcysteine and Metamizole may falsely depress this assay. Reference Range HDL <40 mg/dL Low HDL Cholesterol HDL >or= 60 mg/dL High HDL Cholesterol Performed By: #### L 100.0100, L506.1000, L501.52489, L3300.7027, L509.3000, L500.4100, L3300.6900, L503.0105, L506.0250, L501.9520, L3300.1500, L506.0400, L7000.5800, L503.6550, L3300.1750, L801.1541, L501.9985, L7100.0100, L503.6150, L500.4050, L801.2600 #### [facility] [address] [place], [place], [phone] Cholesterol in LDL [Mass/Vol] 131 mg/dL High 0-130 [facility] Comment on above: Order Comment: N N Performed By: #### L 100.0100, L506.1000, L501.99169, L3300.7027, L509.3000, L500.4100, L3300.6900, L503.0105, L506.0250, L501.9520, L3300.1500, L506.0400, L7000.5800, L503.6550, L3300.1750, L801.1541, L501.9985, L7100.0100, L503.6150, L500.4050, L801.2600 #### [facility] [address] [facility] [place], [address] Cholesterol in VLDL [Mass/Vol] 25 mg/dL Normal 5-40 [facility] Comment on above: Order Comment: N N Performed By: #### L 100.0100, L506.1000, L501.31250, L3300.7027, L509.3000, L500.4100, L3300.6900, L503.0105, L506.0250, L501.9520, L3300.1500, L506.0400, L7000.5800, L503.6550, L3300.1750, L801.1541, L501.9985, L7100.0100, L503.6150, L500.4050, L801.2600 #### [facility] [address] [facility] [place], [address] Triglyceride [Mass/Vol] 124 mg/dL Normal [facility] Comment on above: Order Comment: N N Result Comment: The drugs N-Acetylcysteine and Metamizole may falsely depress this assay. Serum Triglycerides Reference Interval Normal <150 mg/dL Borderline high 150 - 199 mg/dL High 200 - 499 mg/dL Very High > or = 500 mg/dL Performed By: #### L 100.0100, L506.1000, L501.62484, L3300.7027, L509.3000, L500.4100, L3300.6900, L503.0105, L506.0250, L501.9520, L3300.1500, L506.0400, L7000.5800, L503.6550, L3300.1750, L801.1541, L501.9985, L7100.0100, L503.6150, L500.4050, L801.2600 #### [facility] [address] [place], [place], [id number] T4 Free Directon 2024 T4 FREE DIRECT 1.11 ng/dL Normal 0.76-1.46 [facility] Comment on above: Order Comment: NN Performed By: #### L 100.0100, L506.1000, L501.67038, L3300.7027, L509.3000, L500.4100, L3300.6900, L503.0105, L506.0250, L501.9520, L3300.1500, L506.0400, L7000.5800, L503.6550, L3300.1750, L801.1541, L501.9985, L7100.0100, L503.6150, L500.4050, L801.2600 #### [facility] [address] [place], [place], [id number] Testosterone, Serum Totalon 2024 Testosterone [Mass/Vol] 24.38 ng/dL Normal [facility] Comment on above: Result Comment: CENT RAL 90% REFERENCE RANGES MALE AGE <50 197.44 - 669.58 ng/dL MALE AGE > or = 50 187.72 - 684.19 ng/dL FEMALE AGE <50 8.38 - 35.01 ng/dL FEMALE AGE > or = 50 <7.00 - 35.92 ng/dL Effective as of 05/06/21 Performed By: #### L 100.0100, L506.1000, L501.37870, L3300.7027, L509.3000, L500.4100, L3300.6900, L503.0105, L506.0250, L501.9520, L3300.1500, L506.0400, L7000.5800, L503.6550, L3300.1750, L801.1541, L501.9985, L7100.0100, L503.6150, L500.4050, L801.2600 #### [facility] [address] [place], [place], [id number] Thyroid Stim Hormone (TSH)on 2024 TSH 1.570 uIU/mL Normal 0.358-3.740 [facility] Comment on above: Order Comment: N N Performed By: #### L 100.0100, L506.1000, L501.95965, L3300.7027, L509.3000, L500.4100, L3300.6900, L503.0105, L506.0250, L501.9520, L3300.1500, L506.0400, L7000.5800, L503.6550, L3300.1750, L801.1541, L501.9985, L7100.0100, L503.6150, L500.4050, L801.2600 #### [facility] [address] [place], [place], [id number] Vitamin B12on 2024 Cobalamin (Vitamin B12) [Mass/Vol] 941 pg/mL [facility] 211-911 [facility] Comment on above: Performed By: #### L 100.0100, L506.1000, L501.58296, L3300.7027, L509.3000, L500.4100, L3300.6900, L503.0105, L506.0250, L501.9520, L3300.1500, L506.0400, L7000.5800, L503.6550, L3300.1750, L801.1541, L501.9985, L7100.0100, L503.6150, L500.4050, L801.2600 #### [facility] [address] [place], [address] Vitamin D,25 Hydroxyon 06-09 Vitamin D 25-OH 30.1 ng/mL Normal [facility] Comment on above: Result Comment: Bonnie min D 25([place]) Status Range Deficiency <20 ng/mL (50nmol/L) Insufficiency 20 - 30 ng/mL (50 - 75 nmol/L) Sufficiency 30 - 100 ng/mL (75 - 250 nmol/L) Toxicity >100 ng/mL (>250 nmol/L) Performed By: #### L 100.0100, L506.1000, L501.42257, L3300.7027, L509.3000, L500.4100, L3300.6900, L503.0105, L506.0250, L501.9520, L3300.1500, L506.0400, L7000.5800, L503.6550, L3300.1750, L801.1541, L501.9985, L7100.0100, L503.6150, L500.4050, L801.2600 #### [facility] [address] [place], [place], [address] CV VENOUS LEG RTon CV VENOUS LEG RT [place] [address] Patient: REJI ROSALES Phone#: : [phone] Age: 58 Gender: F Pt. Type: Out Account: [id number] Location: Ordering: DR. FATEMEH LANE Exam Date: 12/27/2023/7:34 Family Phys: Charge Code: 252148 Physician: Throckmorton Order #: [id number] Dose#: PROCEDURE: VENOUS DOPPLER RT LEG COMPARISON: None. INDICATIONS: RIGHT LEG PAIN TECHNIQUE: Color duplex Doppler ultrasound evaluation analysis was performed in the usual manner. TISSUE REWINDER: SANDY RISK FACTORS FOR VENOUS DISEASE: Other PAIN EXAMINATION: RIGHT +Present -Reduced o Absent LEFT SPONT PHASIC AUG REFLUX COMP SPONT PHASIC AUG REFLUX COMP + + + o + CFV + + + + + + SFJ + + + o + FV (prox) + FV (mid) + FV (dist) + + + o + POP V + + + o + T/P TRUNK + + + o + PTV + + + o + PERONEAL V + GSV GASTROC SOLEAL V TISSUE REWINDER'S NOTES: FINDINGS: THROMBI: None visible. Continued Report - Page 2 of 2 Patient: REJI ROSALES Phone#: : [phone] Age: 58 Gender: F Pt. Type: Out Account: [id number] Location: Ordering: DR. [address] Exam Date: 12/27/2023/7:34 Family Phys: Charge Code: [id number] Physician: Throckmorton Order #: [id number] Dose#: COMPRESSIBILITY: Normal. OTHER: Negative. CONCLUSION: 1. There is no evidence of superficial or deep vein thrombus. Dictated by: Natalie Luevano MD on 12/27/2023 at 11:27 Approved by: Natalie Luevano MD on 12/27/2023 at 11:[address] [facility] Encounters Encounter Date Encounter Type Care Provider Facility Start: 09-06-2024 ambulatory ANH MCDERMOTT [facility] Start: 07-04-2024 End: 07-04-2024 [facility] ANH MCDERMOTT [facility] Start: 2024 ambulatory Anh Rudd [employer] REPAIRER Fa cility:[facility] Start: 12-27-2023 End: 12-27-[address] [facility] Start: 12-24-2023 End: 12-24-2023 Emergency department patient visit ELADIA WEI [facility] Payers Date Payer Category Payer Self-pay 1965 Unknown [id number] [id number] 1965 Unknown [id number] 2.16.8 [id number] 1965 Unknown [id number] 2.16.8 [id number] 1965 Unknown [id number] 2.16.8 [id number] Unknown [id number] 2.16.8 [id number] Unknown [id number] Unknown Summary Purpose Family History No Family History Records FoundNo Family History Records Found Advance Directives No Advanced Directives Records FoundNo Advanced Directives Records Found Additional Source Comments INFORMATION SOURCE (unrecogn ized section and content) DATE CREATED AUTHOR 07/17/2024 [facility] DATE CREATED AUTHOR AUTHOR'S ORGANIZ ATFRDEERIC 09/09/2024 [facility] FOR RECORDS PERTAINING TO PATIENTS WHO ARE OR HAVE BEEN ENROLLED IN A CHEMICAL DEPENDENCY/SUBSTANCEABUSE PROGRAM, SOME INFORMATION MAY BE OMITTED. This clinical summary was aggregated from multiple sources. Caution should be exercised in using it in the provision of clinical care. This summary normalizes information from multiple sources, and as a consequence, information in this document may materially change the coding, format and clinical context of patient data. In addition, data may be omitted in some cases. CLINICAL DECISIONS SHOULD BE BASED ON THE PRIMARY CLINICAL RECORDS. [employer] provides no warranty or guarantee of the accuracy or completeness of information in this document.
== END | disposition home or self-care (01) ==
LOC: LABSPEC 18:12
PROVIDERS: Visit Provider Nurse Practitioner Family
DX: R06.00 Dyspnea, unspecified (principal); I50.20 Unspecified systolic (congestive) heart failure; R53.82 Chronic fatigue, unspecified
CPT/HCPCS: 80053; 82306; 82728; 83540; 85025